=== PATIENT | female | born 1990 | race American Indian/Alaskan Native ===

== ENCOUNTER 2018-04-16 22:04 | Emergency (ER) | payer SELFPAY ==
[2018-04-16 22:04] VITALS: BMI 38.2
[2018-04-16 22:13] VITALS: RESP 16
[2018-04-16] MEDS ORDERED: Sodium Chloride 0.9% 1,000 ML IV STA (22:34)
--- NOTE | 2018-04-16 22:39 | ED PDOC ---
HPI:Nausea, Vomiting, Diarrhea Time Seen by Provider: 04/16/18 22:25 Chief Complaint (Nursing): Headache Chief Complaint (Provider): nausea, vomiting History Per: Patient History/Exam Limitations: no limitations Onset/Duration Of Symptoms: Days (1 week), Waxing/Waning Current Symptoms Are (Timing): Still Present Additional Complaint(s): 28 y/o female presents for evaluation of intermittent nausea with vomiting x 1 week. Associated abdominal cramps, headache. Patient states she has had similar symptoms with previous pregnancies; LMP early February (periods irregular). Denies fever, chest pain, shortness of breath, palpitations, changes in bowel movements, urinary symptoms, vaginal bleeding/discharge Past Medical History Reviewed: Historical Data, Nursing Documentation, Vital Signs Vital Signs: Last Vital Signs Temp 98.6 F 04/16/18 22:09 Pulse 85 04/16/18 22:09 Resp 16 04/16/18 22:09 BP 114/78 04/16/18 22:09 Pulse Ox 100 04/16/18 22:09 - Medical History PMH: No Chronic Diseases - Surgical History Surgical History: ( x 1) - Family History Family History: States: No Known Family Hx - Home Medications Home Medications: Ambulatory Orders Medication Instructions Recorded Clindamycin [Cleocin] 300 mg PO Q6 #28 cap 12/02/14 Acetaminophen with Codeine 2 tab PO Q4H PRN #22 tab 01/04/15 [Tylenol with Codeine No. 3 300 mg-30 mg] Amoxicillin/Clavulanate [Augmentin 1 tab PO BID #14 tab 09/14/15 875 MG-125 MG] Ibuprofen [Motrin] 600 mg PO Q6 PRN #15 tab 09/14/15 Ferrous Sulfate [Feosol] 325 mg PO BID 05/31/16 Multivit/Folic Acid/I 1 tab PO DAILY 05/31/16 [ Plus] glyBURIDE [Micronase] 2.5 mg PO BID 05/31/16 Doxylamine/Pyridoxine HCl (B6) 1 - 2 each PO HS #16 tablet. 04/17/18 [Peggy Hess 10-10 mg Tablet] - Allergies Allergies/Adverse Reactions: Allergies Allergy/AdvReac Type Severity Reaction Status Date / Time No Known Allergies Allergy Verified 12/08/15 19:11 Review of Systems ROS Statement: Except As Marked, All Systems Reviewed And Found Negative Gastrointestinal: Positive for: Nausea, Vomiting, Abdominal Pain Neurological: Positive for: Headache Physical Exam - Reviewed Nursing Documentation Reviewed: Yes Vital Signs Reviewed: Yes - Physical Exam Appears: Positive for: Well, Non-toxic, No Acute Distress Head Exam: Positive for: ATRAUMATIC, NORMAL INSPECTION, NORMOCEPHALIC Skin: Positive for: Normal Color Eye Exam: Positive for: Normal appearance ENT: Positive for: Normal ENT Inspection Cardiovascular/Chest: Positive for: Regular Rate, Rhythm Respiratory: Positive for: Normal Breath Sounds Gastrointestinal/Abdominal: Positive for: Normal Exam, Bowel Sounds, Soft. Negative for: Tenderness Back: Positive for: Normal Inspection Extremity: Positive for: Normal ROM Neurologic/Psych: Positive for: Alert, Oriented (x3) - Laboratory Results Result Diagrams: 04/16/18 23:00 04/16/18 23:00 - ECG O2 Sat by Pulse Oximetry: 100 - Progress ED Course And Treament: labs, urine, OB TV u/s, IV fluids, IV pepcid, IV reglan EXAM: US , Transvaginal CLINICAL HISTORY: 28 years old, female; Pain; complicated by abdominal or pelvic pain; Lower; First trimester; Gestational age or lmp: 03/01/2018; ; Additional info: ; Pelvic pain TECHNIQUE: Real-time transvaginal obstetrical ultrasound of the maternal pelvis and a first trimester with image documentation. Transvaginal imaging was used for better evaluation of the fetus and adnexa. COMPARISON: US - OB , LIMITED 12/08/2015 7:42 PM FINDINGS: Gestation: There is an intrauterine gestational sac with thick lainez. A yolk sac is visible. A pole is present the CRL measuring 1.2 cm 7 weeks 3 days gestational age heart rate 163 bpm. Ultrasound age 7 weeks 5 days NADJA 11/28/2018 Clinical age 6 weeks 4 days NADJA 12/06/2018 Placenta/amniotic fluid: Cannot be adequately evaluated due to the early gestational age. Uterus/cervix: Unremarkable. No myometrial mass. The cervix measures 3.9 cm in length the cervical os is closed. The uterus measures 11.5 cm x 6.4 cm x 6.8 cm Ovaries: Unremarkable. No mass. The LEFT ovary measures 3.4 cm x 2.4 cm x 3.2 cm. There is a benign cyst 1.4 cm x 0.9 cm x 1.1 cm. The RIGHT ovary measures 3.3 cm x 1.6 cm x 3.5 cm in Free fluid: No free fluid. IMPRESSION: 1. Single living intrauterine . 2. Gestational age 7 weeks 5 days NADJA 11/28/2018 3. Simple cyst LEFT ovary. 4. Negative RIGHT ovary. 5. Negative uterus and cervix Patient tolerating PO on re-eval, states she is feeling better Patient educated on findings, discharged with rx Peggy Advised fluids. [place] diet. 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 Instructions: Hyperemesis Gravidarum, Round Ligament Pain, Ovarian Cysts
[2018-04-16 23:52] LABS: BASO # 0.1 K/uL (0.0-0.2); BASO % 0.9 % (0.0-2.0); EOS % 0.2 % (0.0-4.0); HEMOGLOBIN 11.3 g/dL (12.0-16.0); LYMPH # 1.8 K/uL (1.0-4.3); LYMPH % 22.3 % (20.0-40.0); MEAN CELL VOLUME 80.7 fl (81.0-99.0); MEAN CORPUSCULAR HGB CONC 33.5 g/dL (33.0-37.0); MEAN PLATELET VOLUME 8.8 fl (7.2-11.7); MONO # 0.6 K/uL (0.0-0.8); MONO % 6.9 % (0.0-10.0); NEUT # 5.7 K/uL (1.8-7.0); NEUT % 69.7 % (50.0-75.0); RBC 4.19 Mil/uL (3.80-5.20); RED CELL DISTRIBUTION WIDTH 15.3 % (11.5-14.5); WHITE BLOOD COUNT 8.2 K/uL (4.8-10.8)
[2018-04-17] LABS: ALB/GLOB RATIO 1.2 (1.0-2.1); ALBUMIN 4.3 g/dL (3.5-5.0); ALT/SGPT 22 U/L (9-52); AST/SGOT 19 U/L (14-36); BLOOD UREA NITROGEN 6 mg/dl (7-17); CALCIUM 9.3 mg/dL (8.4-10.2); GFR NON-AFRICAN AMERICAN > 60
[2018-04-17 04:37] VITALS: BP 122/78; PULSE 82; TEMP 98.3; O2SAT 98
--- NOTE | 2018-04-17 10:07 | US ---
Date of service: 04/16/2018 PROCEDURE: Obstetrical ultrasound examination HISTORY: ; pelvic pain COMPARISON: Not available TECHNIQUE: Transvaginal FINDINGS: The examination demonstrates a single live intrauterine gestation. Gestational sac diameter corresponds to 7 weeks 6 days. The crown-rump length corresponds to 7 weeks 3 days. Average ultrasound age is 7 weeks 5 days. The NADJA by ultrasound is 11/28/2018. The heart rate is 164 beats per minute. There is no subchorionic hemorrhage identified. A 3 mm yolk sac is visualized. The cervix is closed and measures 4 cm in length. The uterus measures 11.5 x 6.9 x 6.4 cm. There is no uterine mass. The right ovary measures 3.3 x 3.5 x 1.6 cm. No mass. Normal flow demonstrated. The left ovary measures 3.4 x 3.3 x 2.5 cm. There is no mass. There is a 1.5 cm follicular cyst. There is normal flow demonstrated. IMPRESSION: Single live intrauterine gestation of approximately 7 weeks 5 days gestational age. No subchorionic hemorrhage. heart rate 164 beats per minute. NADJA by ultrasound 11/28/2018. The preliminary findings for this examination were reported by [facility] at 11:48 p.m. on 04/16/2018. There is concurrence of this report with the preliminary findings.
== END 2018-04-17 01:45 | disposition home or self-care (01) ==
LOC: H.ER 22:04
DX: O26.91 Pregnancy related conditions, unspecified, first trimester (principal); R10.2 Pelvic and perineal pain; O21.0 Mild hyperemesis gravidarum; O34.81 Maternal care for other abnormalities of pelvic organs, first trimester; N83.209 Unspecified ovarian cyst, unspecified side; Z3A.01 Less than 8 weeks gestation of pregnancy
CPT/HCPCS: 76815; 76817; 80053; 81025; 84702; 85025; 96361; 96374; 96375; 99285; J2765; J7030